=== PATIENT | male | born 1980 | race Caucasian/White ===

== ENCOUNTER 2017-07-25 17:39 | Emergency (ER) | payer MEDICAID ==
[2017-07-25 17:46] VITALS: BP 111/61
--- NOTE | 2017-07-25 18:31 | ER Document Report ---
HPI - HPI Patient complains to provider of: wrist pain Onset: This afternoon Onset/Duration: Gradual Quality of pain: Achy Pain Level: 5 Context: Patient states that he recently moved here and has not gotten established with a local orthopedic doctor. Patient reports having wrist surgery on May 14 of this year. Patient states that he was supposed to have his cast removed last week but missed his appointment as he had to help his mother here. Patient states that he has been doing a lot of lifting and moving and has been poking a coat record changer down his cast. Patient is concerned that he might have got the padding bunched up and he has been rubbing causing him discomfort. Associated Symptoms: Other - Left wrist pain Exacerbated by: Denies Relieved by: Denies Similar symptoms previously: No Recently seen / treated by doctor: No - ROS ROS below otherwise negative: Yes Systems Reviewed and Negative: Yes All other systems reviewed and negative - NEURO Neurology: DENIES: Weakness - MUSCULOSKELETAL Musculoskeletal: REPORTS: Extremity pain - DERM Skin Color: Normal Past Medical History - General Information source: Patient - Social History Smoking Status: Current Every Day Smoker Frequency of alcohol use: Occasional Drug Abuse: None Lives with: Family Family History: Reviewed & Not Pertinent - Medical History Medical History: Negative Renal/ Medical History: Denies: Hx Peritoneal Dialysis Past Surgical History: Reports: Hx Orthopedic Surgery Vertical Provider Document - CONSTITUTIONAL Agree With Documented VS: Yes Exam Limitations: No Limitations General Appearance: WD/WN, No Apparent Distress - INFECTION CONTROL TRAVEL OUTSIDE OF THE [place] IN LAST 30 DAYS: No - HEENT HEENT: Atraumatic, Normocephalic - NECK Neck: Normal Inspection - RESPIRATORY Respiratory: No Respiratory Distress O2 Sat by Pulse Oximetry: 97 - MUSCULOSKELETAL/EXTREMETIES Notes: Patient with cast to the left wrist area, no obvious skin injury - NEURO Level of Consciousness: Awake, Alert, Appropriate Motor/Sensory: No Motor Deficit - DERM Integumentary: Warm, Dry Course - Re-evaluation Re-evalutation: 07/25/17 18:27 Consulted with FRANDY Garcia at [facility], who is very familiar with patient. She states that patient had an ulnar shortening procedure. States that patient just had his cast replaced on 07/03/2017. She states he had a very complex orthopedic case and was due to have the cast off on 07/31/2017. Ms. Garcia advises removing cast and replacing with an AP splint and having patient follow up with their office or local orthopedic office for further management. - Vital Signs Vital signs: Temp Pulse Resp BP Pulse Ox 98.7 F 81 16 111/61 97 07/25/17 17:43 07/25/17 17:43 07/25/17 17:43 07/25/17 17:43 07/25/17 17:43 Procedures - Immobilization Left Wrist Pre-Proc Neuro Vasc Exam: Normal Immobilizer type: Other - dorsal/volar splint to left wrist Performed by: PCT Post-Proc Neuro Vasc Exam: Normal Alignment checked and good: Yes Discharge - Discharge Clinical Impression: Cast discomfort Condition: Stable Disposition: HOME, SELF-CARE Instructions: Splint Precautions ([facility]) Additional Instructions: Return immediately for any new or worsening symptoms Follow-up with orthopedic doctor for further evaluation, call their office Thursday. Call your previous orthopedic doctor to get your records forwarded to you or your new orthopedic doctor. Referrals: [facility] [Provider Group] - Follow up in 3-5 days
== END 2017-07-25 19:36 | disposition home or self-care (01) ==
LOC: ER 17:39
PROC: 2W3DX1Z Immobilization of Left Lower Arm using Splint (ICD-10-PCS; principal; 2017-07-25)
DX: Z47.89 Encounter for other orthopedic aftercare (principal); M25.532 Pain in left wrist
CPT/HCPCS: 99283

== ENCOUNTER 2017-07-30 16:40 | Emergency (ER) | payer SELFPAY ==
[2017-07-30 17:13] VITALS: BP 109/56
--- NOTE | 2017-07-30 18:40 | ER Document Report ---
ED Hand/Wrist Injury - General Chief Complaint: Wrist Pain Stated Complaint: LEFT WRIST PAIN Time Seen by Provider: 07/30/17 18:33 Mode of Arrival: Ambulatory Information source: Patient TRAVEL OUTSIDE OF THE [place] IN LAST 30 DAYS: No - HPI Patient complains to provider of: L wrist pain Injury to: Wrist - Pt is s/p L wrist f[place] 3 [place] state -- he had surgery with rods and screws [place] out of state but felt a "pop" in L wrist while moving furniture earlier today. Denies direct trauma - Related Data Allergies/Adverse Reactions: No Known Allergies Allergy (Unverified 07/25/17 18:44) Past Medical History - General Information source: Patient - Social History Smoking Status: Never Smoker Cigarette use (# per day): No Chew tobacco use (# tins/day): No Smoking Education Provided: No Family History: Reviewed & Not Pertinent Renal/ Medical History: Denies: Hx Peritoneal Dialysis Past Surgical History: Reports: Hx Orthopedic Surgery Review of Systems - Review of Systems Constitutional: No symptoms reported EENT: No symptoms reported Cardiovascular: No symptoms reported Respiratory: No symptoms reported Musculoskeletal: See HPI, Joint pain Physical Exam - Vital signs Vitals: Temp Pulse Resp BP Pulse Ox 97.7 F 89 20 109/56 L 100 07/30/17 17:13 07/30/17 17:13 07/30/17 17:13 07/30/17 17:13 07/30/17 17:13 - General General appearance: Appears well In distress: None - Extremities Wrist: Tender - there is TTP of the L wrist diffusely with decreased ROM. It is N/V intact Course - Vital Signs Vital signs: Temp Pulse Resp BP Pulse Ox 97.7 F 89 20 109/56 L 100 07/30/17 17:13 07/30/17 17:13 07/30/17 17:13 07/30/17 17:13 07/30/17 17:13 - Diagnostic Test Radiology reviewed: Reports reviewed - neg new fx Discharge - Discharge Clinical Impression: Wrist fracture, left Qualifiers: Encounter type: subsequent encounter Fracture type: closed Fracture healing: with delayed healing Qualified Code(s): S62.102G - Fracture of unspecified carpal bone, left wrist, subsequent encounter for fracture with delayed healing Condition: Stable Disposition: HOME, SELF-CARE Additional Instructions: rest, continue current meds, return if worse Referrals: TARI BURGESS MD [ACTIVE STAFF] - Follow up as needed
--- NOTE | 2017-07-30 18:54 | RADIOLOGY REPORT (SQ) ---
EXAM DESCRIPTION: WRIST LEFT 3 VIEWS COMPLETED DATE/TIME: 07/30/2017 6:45 pm REASON FOR STUDY: L wrist pain COMPARISON: None. NUMBER OF VIEWS: Three views. TECHNIQUE: AP, lateral, and oblique radiographic images acquired of the left wrist. LIMITATIONS: None. FINDINGS: MINERALIZATION: Normal. BONES: No acute fracture dislocation. There is a compression plate on the distal ulna. This is inta ct. SOFT TISSUES: No soft tissue swelling. No foreign body. OTHER: No other significant finding. IMPRESSION: NEGATIVE STUDY OF THE LEFT WRIST. NO RADIOGRAPHIC EVIDENCE OF ACUTE INJURY. TECHNICAL DOCUMENTATION: JOB ID: [id number] [employer]- All Rights Reserved
== END 2017-07-30 19:35 | disposition home or self-care (01) ==
LOC: ER 16:40
DX: S62.102G Fracture of unspecified carpal bone, left wrist, subsequent encounter for fracture with delayed healing (principal); X58.XXXD Exposure to other specified factors, subsequent encounter
CPT/HCPCS: 99283

== ENCOUNTER 2018-06-19 19:19 | Emergency (ER) | payer OTHER ==
[2018-06-19] MEDS ORDERED: PSEUDOEPHEDRINE HCL 30 MG TABLET PO ONE (21:07)
[2018-06-19] MEDS ORDERED: GUAIFENESIN 600 MG TABLET.SA PO ONE (21:07)
[2018-06-19] MEDS ORDERED: IBUPROFEN 800 MG TABLET PO ONE (21:07)
[2018-06-19] MEDS ORDERED: LORATADINE 10 MG TABLET PO ONE (21:07)
--- NOTE | 2018-06-19 21:15 | ER Document Report ---
ED Respiratory Problem - General Chief Complaint: Cold Symptoms Stated Complaint: SORE THROAT Time Seen by Provider: 06/19/18 20:29 Mode of Arrival: Ambulatory Information source: Patient Notes: 37-year-old male presents to ED for cough, cold, congestion, runny nose, sore throat, chills, and a subjective fever has not checked his temperature. He states he has had the symptoms for 1-2 days. He states he has had chills. Patient is alert and oriented respirations regular unlabored speaking in full sentences and walking with a even steady gait TRAVEL OUTSIDE OF THE [place] IN LAST 30 DAYS: No - HPI Patient complains to provider of: Cough Onset: Other - 1-2 days Duration: Continuous Initiating Event: URI Quality of pain: Achy Severity: Severe Pain Level: 5 Context: Smoker Short of Breath: Severe Sputum amount: None Associated symptoms: Chills, Fever, PND, Runny nose, Sinus pain/pressure, Sore Throat Similar symptoms previously: Yes Recently seen / treated by doctor: No - Related Data Allergies/Adverse Reactions: No Known Allergies Allergy (Unverified 07/25/17 18:44) Past Medical History - General Information source: Patient - Social History Smoking Status: Current Some Day Smoker - States he smokes a couple times a week when he drinks Cigarette use (# per day): Yes Chew tobacco use (# tins/day): No Smoking Education Provided: Yes - 4 min Frequency of alcohol use: Social Drug Abuse: None Occupation: Sales Lives with: Alone Family History: Reviewed & Not Pertinent Patient has suicidal ideation: No Patient has homicidal ideation: No - Past Medical History Cardiac Medical History: Reports: None Pulmonary Medical History: Reports: None EENT Medical History: Reports: None Endocrine Medical History: Reports: None Renal/ Medical History: Reports: None Malignancy Medical History: Reports None GI Medical History: Reports: None Musculoskeletal Medical History: Reports Hx Musculoskeletal Trauma Skin Medical History: Reports None Psychiatric Medical History: Reports: None Traumatic Medical History: Reports: Hx Fractures - Shoulder foot wrist and knee Infectious Medical History: Reports: None Past Surgical History: Reports: Hx Orthopedic Surgery - Shoulder knee foot and wrist - Immunizations Immunizations up to date: Yes Review of Systems - Review of Systems Constitutional: Chills, Fever EENT: Nose congestion, Nose discharge, Sinus pressure, Sinus discharge, Throat pain Cardiovascular: No symptoms reported Respiratory: Cough Gastrointestinal: No symptoms reported Genitourinary: No symptoms reported Male Genitourinary: No symptoms reported Musculoskeletal: No symptoms reported Skin: No symptoms reported Hematologic/Lymphatic: No symptoms reported Neurological/Psychological: No symptoms reported -: Yes All other systems reviewed and negative Physical Exam - Vital signs Vitals: Temp Pulse Resp BP Pulse Ox 98.1 F 91 16 105/63 97 06/19/18 19:51 06/19/18 19:51 06/19/18 19:51 06/19/18 19:51 06/19/18 19:51 Interpretation: Normal - General General appearance: Appears well, Alert - HEENT Head: Normocephalic, Atraumatic Eyes: Normal Pupils: PERRL Ears: Normal External canal: Normal Tympanic membrane: Normal Sinus: Normal Nasal: Purulent discharge, Swelling Mouth/Lips: Normal Mucous membranes: Normal Pharynx: Post nasal drainage. No: Erythema, Exudate, Retropharyngeal abscess, Tonsillar hypertrophy, Uvular edema, Potential airway comprom. Neck: Normal - Respiratory Respiratory status: No respiratory distress Chest status: Nontender Breath sounds: Normal Chest palpation: Normal - Cardiovascular Rhythm: Regular Heart sounds: Normal auscultation Murmur: No - Abdominal Inspection: Normal Distension: No distension Bowel sounds: Normal Tenderness: Nontender Organomegaly: No organomegaly - Back Back: Normal, Nontender - Extremities General upper extremity: Normal inspection, Nontender, Normal color, Normal ROM , Normal temperature General lower extremity: Normal inspection, Nontender, Normal color, Normal ROM , Normal temperature, Normal weight bearing. No: Bo's sign - Neurological Neuro grossly intact: Yes Cognition: Normal Orientation: AAOx4 Penelope Coma Scale Eye Opening: Spontaneous Chloe Coma Scale Verbal: Oriented Penelope Coma Scale Motor: Obeys Commands Penelope Coma Scale Total: 15 Speech: Normal Motor strength normal: LUE, RUE, LLE, RLE Sensory: Normal - Psychological Associated symptoms: Normal affect, Normal mood - Skin Skin Temperature: Warm Skin Moisture: Dry Skin Color: Normal Course - Re-evaluation Re-evalutation: 06/20/18 00:05 Test was negative. Patient's assessment was consistent with an upper respiratory infection. Patient was treated with clindamycin 10 mg, Sudafed 30 mg, Mucinex 600 mg, and ibuprofen. Patient was discharged home to follow-up with primary doctor. - Vital Signs Vital signs: Temp Pulse Resp BP Pulse Ox 98 F 72 16 126/78 H 100 06/19/18 21:59 06/19/18 21:59 06/19/18 21:59 06/19/18 21:59 06/19/18 21:59 Discharge - Discharge Clinical Impression: Sore throat (viral) URI (upper respiratory infection) Qualifiers: URI type: unspecified URI Qualified Code(s): J06.9 - Acute upper respiratory infection, unspecified Condition: Stable Disposition: HOME, SELF-CARE Instructions: Family Physicians / Practices Additional Instructions: SORE THROAT: Sore throats may be caused by viruses, bacteria, or fungi. Most are due to a virus, and must get better on their own. Bacterial sore throats, particularly those due to "strep," need treatment with antibiotics. If an antibiotic is prescribed, be sure to take the medication for a full 10 days. Failure to take the antibiotic can result in complications such as rheumatic fever. Sometimes, an injection of antibiotics is given instead of pills or liquid. This single "shot" is equal in effectiveness to the oral medication. To relieve symptoms, take acetaminophen for pain. Sip clear liquids frequently, or eat popsicles or ice chips. Anesthetic sprays or lozenges may help. Make sure the air in the room is not too dry. Avoid using decongestants or antihistamines. Call the doctor if there is no improvement in two days, or if you have difficulty breathing, increasing throat pain, high fever, rash, or frequent vomiting. UPPER RESPIRATORY ILLNESS: You have a viral infection of the respiratory passages -- a "cold." This common infection causes nasal congestion, drainage, and often sore throat and cough. It is highly contagious. The disease usually lasts about 10 to 14 days. There is no "cure" for the viral infection -- it must run its course. If there is a complication, such as bacterial infection in the nose, sinuses, middle ear, or bronchial tubes, antibiotics may be required. The antibiotics won't affect the virus. Drink plenty of fluids. A humidifier may help. An expectorant medication or decongestant may make you more comfortable. Use acetaminophen or ibuprofen for fever or aches. See the doctor if fever persists over two days, if there is any significant worsening of your symptoms, or if you simply fail to improve as expected. You will treated with Claritin 10 mg, Sudafed 30 mg, Mucinex 600 mg, and ibuprofen 800 mg, for your cough cold congestion and body aches. You strep test was negative. You lung sounds were clear. You did not have a fever. This is a upper respiratory infection. Also he can use Chloraseptic [place] or salt and soda solution for your sore throat. Flomax which is also over-the- counter may help with your symptoms to use it as the box instructions. Salt and soda solution 1 quart of water 1 tablespoon of salt 1 teaspoon of baking soda Mixed 3 ingredients together and boil for 1 minute Placed in a covered quart jar Use 1/2 ounce of cold solution to gargle 3 times a day USE OF ACETAMINOPHEN (Tylenol): Acetaminophen may be taken for pain relief or fever control. It's much safer than aspirin, offering a wider range of "safe" dosages. It is safe during . Some brand names are Tylenol, Panadol, Datril, Anacin 3, Tempra, and Liquiprin. Acetaminophen can be repeated every four hours. The following are maximum recommended dosages: >89 pounds or adults 650 mg to 900 mg Acetaminophen can be repeated every four hours. Maximum dose not to exceed 4000 mg a day. SMOKING: If you smoke, you should stop smoking. The tar and chemicals in cigarette smoke are harmful. Smoking has been shown to cause: emphysema chronic bronchitis lung cancer mouth and throat cancer stomach and pancreas cancer premature aging defects In addition, smoking increases ear and lung infections in children of smokers. FOLLOW-UP CARE: If you have been referred to a physician for follow-up care, call the physician s office for an appointment as you were instructed or within the next two days. If you experience worsening or a significant change in your symptoms, notify the physician immediately or return to the Emergency Department at any time for re-evaluation. Forms: Smoking Cessation Education, Return to Work
[2018-06-19 22:00] VITALS: BP 126/78
== END 2018-06-19 21:57 | disposition home or self-care (01) ==
LOC: ER 19:19
DX: J06.9 Acute upper respiratory infection, unspecified (principal); J02.9 Acute pharyngitis, unspecified; F17.210 Nicotine dependence, cigarettes, uncomplicated
CPT/HCPCS: 87070; 87880; 99283; 99406